=== PATIENT | female | born 1940 | race Caucasian/White ===

== ENCOUNTER 2016-11-11 06:01 | Day surgery (SDC) | payer MEDICARE, MEDICAID ==
--- NOTE | 2016-11-10 11:59 | PCM.ANEPRE ---
Anesthesia Pre-Op Review Reason for Review: COPD Anesthesia Recommendations: Proceed with Procedure Additional Comments Proceed with planned procedure pending DOS eval. Bharathi Perez DO November 10, 2016 11:59
[~2016-11-11] VITALS: Ht 144.8 cm; Wt 60.8 kg
[2016-11-11] VITALS (12 sets, daily range): BP systolic 94–136; BP diastolic 61–86; PULSE 64–69; RESP 15–18; O2SAT 88–97
[2016-11-11] MEDS: Lactated Ringer's 1,000 ML IV SCH ×5 (05:00→20:58)
[~2016-11-11 06:01] MED LIST: ALEN70TA51 PO; CHOL200047 PO; CITA20TA PO; CeFAZolin Inj 2 GM in IV Premix 1 EACH IV ONE; FLUT15.88 NS; LEVO-86 PO; LORA10CA PO; PRE625 VAGINAL; TIOT18CA3 IH
[2016-11-11] MEDS ORDERED: Propofol 10,000 mCg/mL 20 mL Inj ONE (06:02)
[2016-11-11] MEDS ORDERED: Phenylephrine 10,000 mCg/mL Inj ONE (06:02)
[2016-11-11] MEDS ORDERED: EPHEDrine/NS 5 mg/mL 5 mL Syringe ONE (06:02)
[2016-11-11] MEDS ORDERED: Ondansetron 2 mg/mL 2 mL Inj ONE (06:02)
[2016-11-11] MEDS ORDERED: Succinylcholine Chloride 20 mg/mL 5 mL Inj ONE (06:02)
[2016-11-11] MEDS ORDERED: fentaNYL-PF 50 mCg/mL 2 mL Inj ONE (06:02)
[2016-11-11] MEDS ORDERED: Morphine PF 1 mg/mL 10 mL Inj ONE (06:02)
[2016-11-11] MEDS ORDERED: Furosemide 10 mg/mL 4 mL Inj ONE (06:02)
[2016-11-11] MEDS ORDERED: Dexamethasone 4 mg/mL Inj ONE (06:02)
[2016-11-11] MEDS ORDERED: Phenazopyridine 97.5 mg Tablet ONE (06:20)
[2016-11-11] MEDS ORDERED: TIOT18CA3 IH (06:37)
--- NOTE | 2016-11-11 07:19 | PCM.HPANE ---
Patient Data Date of Service: November 11, 2016 Surgeon Admitting Provider: Attending Provider:Roderick Bustillo MD Primary Care Physician:Gabby Landrum MD Other Provider:Guevara De Los Santos Anesthesia Reason for Visit Incomplete Uterovaginal Prolapse, Retocele Ht/WT & BMI Height (Feet): 4 Height (Inches): 9.00 Weight (Kilograms): 60.800 Body Mass Index 28.00 Allergies Coded Allergies: codeine (Verified Allergy, Intermediate, TWITCH, 03/27/12) trazodone (Verified Allergy, Unknown, 11/10/16) albuterol (Verified Adverse Reaction, Unknown, 11/10/16) Causes shakiness/uneasiness Past Anesthesia History Anesthesia History: Denies:: Anesthesia Reactions, Fam Anesthesia Reaction, Fam Malignant Hypertherm, Malignant Hyperthermia Diabetes History Hx Diabetes?: No MRSA MRSA: No Medications Hypertension Medication: No Home Meds Incl Beta Lizzie: Yes Reported Medications Tiotropium Picacho (Spiriva)18 Mcg Cap.w.dev18 Mcg IH BID #1 PKG Ref 0 11/11/16 Tiotropium Picacho (Spiriva)18 Mcg Cap.w.dev18 Mcg IH DAILY PRN For Shortness of Breath #1 PKG Ref 0 11/10/16 Levothyroxine Sodium (Levo-T)50 Mcg Hyaucn96 Mcg PO DAILY 11/10/16 Alendronate (Binosto)70 Mg Tablet.eff70 Mg PO WEEKLY 11/10/16 Cholecalciferol (Vitamin D3) (Vitamin D3)2,000 Unit Capsule2,000 Unit PO DAILY 11/10/16 Estrogens Conjugated (Premarin)0.625 Mg Tablet0.625 Mg VAGINAL Twice weekly 30 Days Ref 0 11/10/16 Citalopram Hydrobromide (Celexa)20 Mg Rfekhe56 Mg PO DAILY Ref 0 11/10/16 Discontinued Reported Medications Loratadine (Claritin)10 Mg Ektjmjm71 Mg PO DAILY Ref 0 11/10/16 Fluticasone Propionate 50 Mcg/Actuation [place].susp1 [place] NS DAILY PRN For Congestion 11/10/16 History History of ENT Problems?: Yes HEENT History: Positive for:: Hearing Problem ([place]) Sinus Problem (Hx of sinus infections) Denture Type: Full- Upper Teeth Condition: Within Normal Limits (lower teeth present) Hx of Heart Problems?: No Cardiovascular History: Denies:: Atrial Fibrillation Chest Pain Congestive Heart Failure Heart Murmur Hx of Respiratory Problem?: Yes Respiratory History: Positive for:: COPD (mild, no recent exacerbations) Use of Inhalers / NEBS (As needed) Hx Neurologic Problems?: No Hx of GI Problems?: Yes Gastrointestinal History: Positive for:: Hiatal Hernia (small, no regular GISELLA) Other GI Pertinent History: Rectocele with fecal incontinence-current problem. Hx of Problems?: Yes Genitourinary History: Positive for:: Urinary Tract Infection (Chronic ) Other Pertinent History: Uterovaginal prolapse; did use pessary without reduction of symptoms. Female Hx: Denies:: Currently Problems with Breasts? (Hx of bilateral augmentation) Hx Musculoskeletal Problems?: Yes Hx of Psycho/Social Problems?: Yes Psycho Social History: Positive for:: Anxiety Hx Depression Hx Surgeries?: Yes (Breast augmentation, sling repair, shoulder scope, tubal, appy, tonsil) Hx Any Other Health Problems?: Yes Other History: Positive for:: Hospitalization Thyroid Disease (Hypothyroid.) Denies:: Cancer Endocrine Disease History Blood Transfusions: Positive for:: Accept Blood Products? Hx Diabetes: No Hx Alcohol Use: NoHx Substance Use: NoHave You Smoked inLast 12 mo: Yes (Pt uses E-cigarette daily) Stop/Bang S-Snoring: Do You Snore Loudly: Yes T-Tired: feel tired, fatigued: No O-Obsered: Observed not breath: No P-Blood Pressure: treated: No B- Body Mass Index > 35 kg/m2: No A- Age over 50: Yes N- Neck Large Circumference: No G- Gender Male: No MIGUEL Total Score: 2 MIGUEL Risk Assessment: Low Risk, <3 Yes Risk Assessment Category Category 1A: Patient has history of documented sleep apnea, and HAS NOT received any narcotic, sedative or anesthesia administration during this stay. Category 1B: Patient has history of documented sleep apnea, and HAS received any narcotic , sedative or anesthesia administration during this stay Category 2: Patient has SUSPECTED Obstructive Sleep Apnea, and HAS received any narcotic , sedative or anesthesia administration during this stay. Category 3: Patient has SUSPECTED Obstructive Sleep Apnea and HAS NOT received narcotic, sedative or anesthesia administration during this stay. Category 4: Outpatient in Procedural Areas with known sleep apnea or who screen positive for High Risk via the STOP/BANG questionnaire. Exam Exam Vital Signs Vital Signs Date Time Temp Pulse Resp B/P Pulse Ox O2 Delivery O2 Flow Rate FiO2 11/11/16 06:23 36.5 64 15 136/86 93 Room Air General Appearance: Alert, Oriented X3, Cooperative, No Acute Distress HEENT/AIRWAY: MP 2, Neck Movement (from), Mouth Opening (3 fb), Other (tmb 3 fb ) Lungs: Clear to Auscultation, Normal Air Movement Heart: Exam Unremarkable, Regular Rate/Rhythm, No Murmurs/Rubs/Gallops Meds/Labs/Diagnostics Admission Meds Current Medications Lactated Ringer's (Lr) 1,000 ml @ 120 mls/hr Q8H20M IV Last administered on 06:51; Start 11/11/16 at 05:00; Stop 11/11/16 at 13:19 Gabapentin (Neurontin) 600 mg PREOP ONCE PO Last administered on 11/11/16 06: 29; Start 11/11/16 at 06:00; Stop 11/11/16 at 06:01; Status DC Acetaminophen (Tylenol) 975 mg PREOP ONCE PO Last administered on 11/11/16 06: 28; Start 11/11/16 at 06:00; Stop 11/11/16 at 06:01; Status DC Labs Plt 284 Test 11/11/16 06:35 Plan Impression Patient chart reviewed, patient interviewed and anesthestic plan with risks, benefits, and alternatives discussed, and informed consent obtained. NPO per Anesth. Guidelines: Yes ASA Physical Status: ASA2 Mod Systemic Disease Anesthetic Plan: GA, Other (intrathecal morphine for postoperative analgesia) Bene/Risks/Altern/Consents: Yes HP Complete Prior to Induction: Yes Pablito Tatum MD November 11, 2016 07:19
[2016-11-11 07:20] LABS: Mean Corpuscular Hemoglobin 27.4 pg (27.0-35.0); Mean Corpuscular Volume 84.9 fL (81-100)
[2016-11-11] MEDS ORDERED: Labetalol 5 mg/mL 4 mL Inj IV PRN (08:20)
[2016-11-11] MEDS ORDERED: Lactated Ringer's 500 ML IV PRN (08:20)
[2016-11-11] MEDS ORDERED: EPHEDrine Sulfate 50 mg/mL Inj IVPUSH PRN (08:20)
[2016-11-11] MEDS ORDERED: EPHEDrine Sulfate 50 mg/mL Inj IM PRN (08:20)
[2016-11-11] MEDS ORDERED: Phenylephrine 10,000 mCg/mL Inj IVPUSH PRN (08:20)
[2016-11-11] MEDS ORDERED: Ondansetron 2 mg/mL 2 mL Inj IVPUSH PRN ×2 (08:20→11:50)
[2016-11-11] MEDS ORDERED: Lactated Ringer's 1,000 ML IV SCH (08:20)
[2016-11-11] MEDS ORDERED: hydrALAZINE 20 mg/mL Inj IVPUSH PRN (08:20)
[2016-11-11] MEDS ORDERED: HYDROmorphone 1 mg/mL Inj IVPUSH PRN (08:20)
[2016-11-11] MEDS ORDERED: fentaNYL-PF 50 mCg/mL 2 mL Inj IVPUSH PRN (08:20)
[2016-11-11] MEDS ORDERED: Atropine 0.4 mg/mL Inj IVPUSH PRN (08:20)
[2016-11-11] MEDS ORDERED: Gentamicin 40 mg/mL 2 mL Inj IRRIGATION ONE ×2 (08:45→09:01)
[2016-11-11 10:15] LABS: APPEARANCE,URINE CLEAR (CLEAR,HAZY); COLOR,URINE DARK YELLOW (YELLOW); OCCULT BLOOD,URINE NEGATIVE (NEGATIVE); PH,URINE 8.5 (5.0-8.0); UROBILINOGEN,URINE NORMAL (NORMAL)
[2016-11-11] MEDS ORDERED: Estrogens Conjugated 30 Gm Vaginal Cream VAGINAL ONE (10:38)
[2016-11-11] MEDS ORDERED: Lactated Ringer's 1,000 ML IV ONE (11:27)
[2016-11-11] MEDS ORDERED: MetoCLOpramide 5 mg/mL 2 mL Inj IVPUSH PRN (11:50)
[2016-11-11] MEDS ORDERED: Alum-Mag Hydrox-Simeth 30 mL Suspension PO PRN (11:50)
[2016-11-11] MEDS ORDERED: Acetaminophen IV 1,000 MG in IV Premix 1 EACH IV ONE (11:50)
--- NOTE | 2016-11-11 12:30 | NUR ---
received to room 1017 from PACU alert, oriented, 76 year old female, fairly comfortable, on 5L Oxygen per Oxymask, does not appear to be in any distress. Has vag packing in.
--- NOTE | 2016-11-11 13:03 | PCM.ANEP1 ---
Post Anesthesia Phase 1 PACU Phase 1 Assessment Date of Service: November 11, 2016 Vital Signs Vital Signs Date Time Temp Pulse Resp B/P Pulse Ox O2 Delivery O2 Flow Rate FiO2 11/11/16 12:30 17 109/76 94 OxyMask 5 11/11/16 12:15 65 16 104/68 95 Simple Mask 10 11/11/16 12:00 66 16 118/73 95 Simple Mask 10 11/11/16 11:50 67 15 118/67 94 Simple Mask 10 11/11/16 11:47 17 97 11/11/16 11:45 65 15 115/70 94 Simple Mask 10 11/11/16 11:40 64 17 121/69 94 Simple Mask 10 11/11/16 11:35 36.9 68 16 122/79 95 Simple Mask 10 11/11/16 06:23 36.5 64 15 136/86 93 Room Air Anesthetic Administered: GA, Regional Block Level of Alertness: Sleepy, easy to arouse HORTON's with Equal Strength: Yes Pain: No Nausea or Vomiting: No Cardiovascular Function and Hy: Yes Oxygen Delivery: Simple Mask Lungs: Clear to Auscultation, Normal Air Movement Dermatome Level: Full Sensation Summary Pt comfortable. Complications: No Follow up Care: No Patient Instructions Provided: Yes Pablito Tatum MD November 11, 2016 13:03
[2016-11-11] MEDS: oxyCODONE-Acetamin 5-325 mg Tablet PO PRN ×2 (14:27→21:06)
[2016-11-11] MEDS: Ketorolac 15 mg/mL Inj IVPUSH PRN ×2 (14:28→21:06)
[2016-11-11] MEDS ORDERED: BACITRACIN RIGHT_EYE SCH (14:32)
[2016-11-11] MEDS ORDERED: POLYMYXIN B RIGHT_EYE SCH (14:32)
[2016-11-11] MEDS: BACITRACIN RIGHT_EYE SCH ×2 (14:55→21:02)
[2016-11-11] MEDS: NEOMYCIN RIGHT_EYE SCH ×2 (14:55→21:02)
[2016-11-11] MEDS: POLYMYXIN B RIGHT_EYE SCH ×2 (14:55→21:02)
[2016-11-11] MEDS: Tiotropium 18mcg/Cap 5 Capsule Inhaler Kit INHALATION SCH (16:58)
[2016-11-11] MEDS ORDERED: Tiotropium 18mcg/Cap 5 Capsule Inhaler Kit INHALATION SCH (20:30)
--- NOTE | 2016-11-11 22:06 | PCM.SURGOP ---
Surgical Operative Report Date of Service: November 11, 2016 Pre Operative Diagnosis 1. urodynamic stress incontinence (recurrent) 2. Rectocele 3. Uterine prolapse Post Operative Diagnosis 1. urodynamic stress incontinence (recurrent) 2. POPQ Stage 2 Rectocele 3. POPQ Stage 2 Uterine prolapse and Enterocele Procedure: 1. vaginal hysterectomy with bilateral salpingoophorectomy 2. posterior repair 3. high uterosacral ligament vaginal vault suspension, cystoscopy, and enterocele repair 4. Macroplastique urethral injection. 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 urodynamic stress incontinence 2. Rectocele and Uterine prolapse She had been using a #7 ring pessary with support and knob. However, she decided to pursue surgical treatment. She had a sling inserted in [place] by an ObGyn in the . Due to vaginal erosion, the sling was removed in Mar 2015 at [facility] in [place]. The patient is a candidate for surgical prolapse management in the form of:. vaginal hysterectomy. with possible BSO, posterior repair with possible biologic graft augmentation, [high uterosacral ligament vaginal vault suspension, enterocele repair. and Macroplastique urethral injection. She has obtained medical/cardiac clearance prior to surgery. The patient signed the consent form. She agreed with the risks, benefits, and alternatives to surgery. The risks included but not limited to recurrence or persistence of prolapse, recurrence of persistence of incontinence, development of voiding dysfunction, development of urinary urgency, urgency incontinence, frequency, and need for intermittent self-catheterization or prolonged indwelling catheterization, injury to other organs including bladder, bowel, nerves or blood vessels. Need for blood transfusion, need for temporary colostomy or urinary stenting. Development of vaginal scarring, dyspareunia, defecatory dysfunction, recurring pain, hematoma formation, urinary tract infection, cellulitis, necrotizing fascitis, and medical risks including myocardial infarction, stroke or VTE. She also understood the FDA warnings associated with the use of vaginal mesh (dysparunia, vaginal erosion, erosion into bowel/bladder/urethra, requiring further surgery to correct these complications). The patient understood the risks and benefits and consented to surgery. Findings: see dictation Procedure Details SURGICAL TECHNIQUE: The patient was brought to the operating room and was placed under general anesthesia. Prior to this a spinal with Duramorph was administered. She was prepped and draped in the normal fashion for vaginal surgery with the legs in Yellofin stirrups. She was given a dose of IV ancef intraoperatively. She received 200 mg of oral pyridium 30 min prior to surgery. 1. Vaginal Hysterectomy and Bilateral Salpingoophorectomy: Lidocaine 0.5% with 1:200,000 of epinephrine was infiltrated pericervically. A pericervical incision was made with a scalpel. Anteriorly, the bladder was sharply dissected off the cervix. Posteriorly, the cul de sac was entered with sharp dissection. The bowels were packed with a mini-laparotomy sponge. The uterosacral ligaments were bilaterally clamped, divided and then tied in a transfixion fashion with 0- vicryl suture. Anteriorly, the Uterovesical peritoneum was entered with sharp dissection and the bladder was retracted upward with a right-angle retractor. The uterine vessels were then coagulated, and ligated using the Ligasure Impact System. The uterine body was delivered posteriorly. The utero-ovarian ligaments were clamped bilaterally, coagulated, ligated and then tied using 0-Vicryl suture. The ovaries and tubes appeared normal. Next we proceeded with Bilateral Salpingoophorectomy. The left ovary and tube were grasped with [place] clamp. A hysterectomy clamp was placed along the vascular base. This was coagulated, then ligated with Ligasure Impact. The pedicle was then tied using 0-vicryl suture. The same procedure was performed on the right adnexa. It was noted that the pedicles were hemostatic. 2-0 Vicryl suture was used to achieve hemostasis along the lateral cuff. 2. High uterosacral ligament vaginal vault suspension, cystoscopy and enterocele repair: Mini laparotomy sponges were packed to retract the bowel upwards. A pair of Allis clamps were placed along the intraperitoneal portions of the vagina at the 5 and 7 o'clock positions. Tension along these Allis clamps allowed for identification of the uterosacral ligaments bilaterally. Also the ureters were palpated bilaterally in order to avoid them. A pair of 0 Vicryl sutures were passed around the uterosacral ligaments at the level of the ischial spine bilaterally, totalling four. Cystoscopy was performed. As the pyridium was not concentrating, 200 ml of D50 was instilled into the bladder. While tension was applied to the vault sutures, spillage of urine was noted at both ureteric orifices. Next, two 3-0 Prolene sutures were placed transversely through the cul-de-sac peritoneum. This was performed while using a gloved finger in the rectum as to avoid penetrating the underlying rectal mucosa. Tying these sutures obliterated the enterocele. 3. Posterior colporrhaphy: Lidocaine 0.5% with 1:200,000 of epinephrine was infiltrated along the perineum and posterior vaginal wall mucosa. A midline vertical incision was made through the perineum and a midline vertical incision was made along the posterior vagina with a scalpel. A small wedge of perineum was not necessary to be excised. The vaginal mucosa was dissected off the underlying rectovaginal tissues. It was noted the fascial tissues were not thin nor deficient. The rectocele was plicated in one layer using 2-0 Vicryl suture in an interrupted fashion. No excess posterior vaginal mucosa was required to be excised. Examination of the anterior segment revealed no significant anterior wall descent. A pair of Alices were placed along the anterior apex and pushing it towards the level of the planned vault suspension allowed for complete reduction of the anterior segment. Therefore, we felt an anterior repair was not necessary. The vault suspension sutures were then passed through the planned apex of the vagina. Two were placed through the anterior apex and the other two, through the posterior apex. The vagina was then reapproximated using 3-0 Vicryl suture in a running-locked fashion. The perineum was reapproximated using 2-0 Vicryl suture in an interrupted fashion. The skin was reapproximated using 3-0 Vicryl suture in a subcuticular fashion. The high uterosacral ligament vaginal vault suspension sutures were tied and this elevated the apex of the vagina high up into the hollow of the sacrum. As noted before, the anterior segment was completely reduced and therefore an anterior repair was not necessary. 4. Macroplastique Urethral Injection and cystoscopy. A 30-degree cystoscope was inserted into the bladder. The bladder was filled to approximately 50% capacity with sterile water. The scope was retracted to visualize the bladder neck and location of the mid urethral position. The needle was then advanced through the working channel of the scope to visualize the needle tip. The needle was inserted into urethral wall, taking care to ensure that the needle bevel was facing the center of the urethral lumen. We used the tissue tunneling technique by orienting the needle with the bevel towards the urethral lumen at a 30- to 45-degree angle. The needle was advanced into the tissue to the first robert, which was 0.5 cm deep. The scope was reduced to 0 degrees. The needle was then advanced to a second robert, which was 1 cm deep. Then, 2.5 mL of the Macroplastique were then injected at the 6 o'clock position. Thirty seconds of waiting time elapsed before withdrawing the needle from the tissue to limit product extravasation. The same procedure was performed at the 2 and 10 o'clock positions. The volumes at the 2 and 10 o'clock positions were 1.25 mL of Macroplastique implant. An additional 1.25 ml of the implant was injected at the 4 oclock and 8 ooclock positions. The end result of the procedure revealed coaptation of the urethral mucosa at the level of the bladder neck. A 12 F marrero catheter was inserted to straight drainage. The vagina was packed with Premarin-lubricated packing. An indwelling 12F marrero catheter was connected to straight drainage. The patient's hips were periodically deflexed during the case. There were no complications. Due to frequent passage of stool per anus, she also received a dose of 80 mg IV gentamicin. Copious irrigation was used. The EBL was 150 ml. All sponges and instruments were accounted for. She was taken to the recovery room in stable condition. Complications There were no periprocedural complications identified. Surgical Specimen Removed: Yes Specimen sent to Pathology: Yes Surgical Specimen description: uterus/cervix and bilateral tubes/ovaries Anesthetic Plan: GA, Other (intrathecal morphine for postoperative analgesia) Grafts, Implants: Implants-See Implant Record Output, Estimated Blood Loss: 150 (ml EBL) Blood Administration during shen: No Drains: None Catheters: Urethral 2 Way Marrero Post Operative Plan overnight stay in bed as outpatient copies to: Edwige Hernández MD; Sharla Ventura MD; Roderick Bustillo MD, William Andre Z MD November 11, 2016 22:06
[2016-11-12 00:20] VITALS: BP 106/69; PULSE 72; RESP 18; O2SAT 95
[2016-11-12] MEDS: oxyCODONE-Acetamin 5-325 mg Tablet PO PRN ×4 (01:52→13:53)
[2016-11-12] MEDS: Lactated Ringer's 1,000 ML IV SCH ×2 (04:55→11:49)
[2016-11-12 05:18] VITALS: BP 102/62; PULSE 82; RESP 18; O2SAT 95
[2016-11-12 05:21] LABS: BASOPHILS % (AUTO) 0.1 % (0-3); EOSINOPHILS % (AUTO) 0.2 % (0-5); MONOCYTES % (AUTO) 12.7 % (4-12); Mean Corpuscular Hemoglobin 27.4 pg (27.0-35.0); Mean Corpuscular Volume 87.6 fL (81-100); NEUTROPHILS % (AUTO) 72.8 % (40-74); Platelet Count 225 bil/L (150-400)
--- NOTE | 2016-11-12 05:35 | NUR ---
Pain Moderate pelvic pain well controlled with prn Percocet. Vag packing in place, pt able to ambulate well, marrero draining freely. Hourly rounding ongoing.
[2016-11-12 08:16] VITALS: BP 90/62; PULSE 84; RESP 20; O2SAT 92
[2016-11-12] MEDS: BACITRACIN RIGHT_EYE SCH (08:18)
[2016-11-12] MEDS: NEOMYCIN RIGHT_EYE SCH (08:18)
[2016-11-12] MEDS: POLYMYXIN B RIGHT_EYE SCH (08:18)
[2016-11-12] MEDS: Tiotropium 18mcg/Cap 5 Capsule Inhaler Kit INHALATION SCH (08:22)
[2016-11-12] MEDS ORDERED: Senna-Docusate 8.6-50 mg Tablet PO SCH (08:30)
[2016-11-12] MEDS ORDERED: Heparin 5,000 Unit/mL Inj SUBQ SCH (08:30)
--- NOTE | 2016-11-12 11:00 | NUR ---
VOIDING TRIAL/MD NOTIFICATION Voiding trial initiated as ordered. Patient was able to void X 3 in half an hour period with a total of 200 ml. PVR-[address] Bustillo made aware. Per MD have patient void again and do another bladder scan and notify MD. Addendum: 11/12/16 at 1617 by JACQUELYN TATUM RN MD NOTIFICATION AT 1230 Patient was able to void 100 ml of UO. PVR-200+. Dr. Bustillo made aware. Per d/c patient with an IFC.
--- NOTE | 2016-11-12 11:57 | PCM.DIGYN ---
Surgical Discharge Instruction Dates of Hospitalization Date of Hospital Admission 11/11/16 outpatient in bed for overnight observation Providers Admitting Physician: Primary Care Physician: Gabby Landrum MD Attending Physician: Roderick Bustillo MD Diagnosis at Time of Discharge Diagnosis at time of discharge 1. urodynamic stress incontinence (recurrent) 2. POPQ Stage 2 Rectocele 3. POPQ Stage 2 Uterine prolapse and Enterocele Post-operative diagnosis 1. urodynamic stress incontinence (recurrent) 2. POPQ Stage 2 Rectocele 3. POPQ Stage 2 Uterine prolapse and Enterocele Problems: Diet Discharge Diet: No restrictions Activity Discharge Activity-General: Restrict lifting to no greater than (10 lbs for 6 wk) Dressing and Incisional Care Hygiene: May shower Follow Up Plan Follow-up appointment: Weeks (2; also f/u in [address] Bustillo's MA if home with marrero; bring the 12 F marrero to the 1wk visit if needed) Call your provider for: Fever, Chills, Shortness of breath, Vomitting, Heavy vaginal bleeding, Increasing pain Roderick Busitllo MD November 12, 2016 11:57
--- NOTE | 2016-11-12 12:00 | PCM.PNSURG ---
Subjective Date of Service: November 12, 2016 Date of Service: November 12, 2016 Visit Information: Reason for Visit Incomplete Uterovaginal Prolapse, Retocele Surgery/Surgery Date TOTAL VAGINAL HYSTERECTOMY 11/11/16 Post-Op Day # 1 Subjective: AVSS OR explained tolerating diet anagesia good ambulating hct stable Postop General: No Complaints Gastrointestinal: Good Appetite Pain Management: PO Postop Activity: Ambulating Independently Objective Vital Sign- Last 8 Hours Date Time Temp Pulse Resp B/P Pulse Ox O2 Delivery O2 Flow Rate FiO2 11/12/16 08:16 36.8 84 20 90/62 92 Room Air 11/12/16 05:18 36.9 82 18 102/62 95 Nasal Cannula 2.00 Intake and Output- Last 8 Hour 11/12/16 Cumulative From/Thru 07:00 11/10/16 10:02 - 11/12/16 06:24 Intake Total 2388 ml 3788 ml Output Total 650 ml 1850 ml Balance 1738 ml 1938 ml Intake Oral 400 ml 400 ml IV Total 1988 ml 3388 ml Output Urine Total 650 ml 1550 ml Estimated Blood Loss 300 ml # Bowel Movements 0 0 General: Alert, Oriented X3, Cooperative Lungs: Clear to Auscultation Abdomen: Benign Catheters: Urethral 2 Way Natarajan Result Diagram: 11/12/16 0455 11/11/16 0635 Assessment & Plan Impression stable POD#1 Problems: VTE Prophylaxis: Sub-Q Heparin (Unfractionated) Resuscitation Status: CPR: Attempt Resuscitation copies to: Gabby Landrum MD; Roderick Bustillo MD, William Andre Z MD November 12, 2016 12:00
--- NOTE | 2016-11-12 14:00 | NUR ---
DISCHARGE Percocet 1-2 tabs PO has been effective for pain control. Patient has been tolerating liquids PO and his diet well. Denies nausea. No emesis noted. Denies SOB. Patient has been able to ambulate in the room with SBA. Tolerated activity well. IFC replaced per orders. IFC instructions was given to the patient and she verbalized understanding. Vaginal packing was d/cd prior to voiding trial this morning. No other dressing noted. IV saline lock d/cd. Discharge instructions, care notes and prescription was given to the patient and she verbalized understanding. Discharged to home with her daughter and all her persona belongings. (Copy of D/C is in the chart).
--- NOTE | 2016-11-16 14:28 | PATH ---
SURGICAL PATHOLOGY Attending Physician:Roderick Bustillo, CASE STATUS: Signed Out PATIENT NAME: TYLOR HENDRICKS PID: [id number] : 1940 DATE COLLECTED:11/11/2016 21:59 SPECIMEN: 1: Uterus +/- tubes/ovaries, except neoplastic, prolapse 2: Ovary +/- tube, non-tumor CLINICAL HISTORY: INCOMPLETE UTERVAGINAL PROLAPSE RECTOCELE 1). UTERUS, LEFT OVARY AND TUBE 2). RIGHT OVARY AND TUBE FINAL DIAGNOSIS: 1.UTERUS, WITH LEFT OVARY AND FALLOPIAN TUBE: LEIOMYOMAS, MYOMETRIUM. BENIGN ENDOMETRIAL POLYP. DISORDERED PROLIFERATIVE ENDOMETRIUM, NEGATIVE FOR ATYPIA. OVARY AND FALLOPIAN TUBE UNREMARKABLE. 2.RIGHT OVARY (NO FALLOPIAN TUBE IDENTIFIED): MULTIFOCAL ENDOMETRIOSIS. ICD10 CODE D25.9 GROSS DESCRIPTION: 1. Received in formalin, labeled "uterus, left ovary and tube", specimen consists of a 35 gram hysterectomy specimen measuring 6.5 cm superior to inferior, 3.5 cm lateral to lateral, and 3.0 cm anterior to posterior. Exocervix measures 3.0 x 3.0 cm and it has a slit-like os measuring 1.5 cm. The cervix is covered by a light damico, smooth, glistening mucosa. Endocervical canal measures 2.0 cm in length and it has a herringbone mucosal surface. Endometrial cavity measures 2.0 cm cornu to cornu and 3.2 cm in length. The posterior endometrium has a red-damico, hyperemic polypoidal structure measuring 1.1 x 0.5 x 0.5 cm. The remainder of the endometrial lining is damico and it measure 0.1 to 0.2 cm in maximum thickness. The myometrium measures 1.2 cm in maximum thickness. At the fundus of the posterior aspect there is a leiomyoma that measures 1.1 cm in diameter extending from the submucosa to subserosa. There is also an anterior uterine wall intramural fibroid-like structure measuring 0.5 cm in maximum diameter. Received also in the same container is a 0.3 cm gram ovarian structure with attached fallopian tube. The ovary measures 2.5 x 1.2 x 1.0 cm, and the fallopian tube measures 3.0 cm in length by 0.5 cm in diameter. The outer surface of the ovary is laguna-white, smooth, and glistening. The cut surface of the ovary is white to damico, solid and homogeneous. [employer] sections submitted as follows: A. Ant. Cervix B. Ant. lower uterine segment C. Ant. uterine wall full thickness D. Ant. uterine wall full thickness E. Post. Cervix F. Post. lower uterine segment G. Post. uterine wall with polypoidal structure full thickness H. Post. uterine wall full thickness I. Post. wall with leiomyomata-like structure J. Entire ovarian structure K. Fimbriated end of the F. Tube L. The remainder of the F. Tube 2. Specimen received in formalin, labeled "right tube and ovary" designated "#2", specimen consists of a 2.2 cm ovarian structure measuring 1.8 x 2.0 x 1.2 cm. No fallopian tube-like structure is grossly identified. Cut surface is pale damico to white, solid and homogeneous. No masses or lesions are grossly identified. Specimen is submitted entirely in three cassettes. ([id number]) MICRO DESCRIPTION: See diagnosis. ICD-9 CODES: CPT CODES: 1: 24176 2: 13976 Electronically Signed Out Bobby Narvaez MD [facility] Pathology [facility] [address], [place] [address] Technical component performed at [facility], [address] [place] [address] Ave, [address], [place], [address]
== END 2016-11-12 14:12 | disposition home or self-care (01) ==
LOC: SAS 06:01 → OSC 12:52 → SAS 11-12 14:12
PROVIDERS: ATTEND Obstetrics & Gynecology
DX: N81.2 Incomplete uterovaginal prolapse (principal); N81.6 Rectocele; N39.46 Mixed incontinence; G89.18 Other acute postprocedural pain; D25.9 Leiomyoma of uterus, unspecified; N95.2 Postmenopausal atrophic vaginitis; R15.9 Full incontinence of feces; N81.84 Pelvic muscle wasting; M81.0 Age-related osteoporosis without current pathological fracture; F32.9 Major depressive disorder, single episode, unspecified; E03.9 Hypothyroidism, unspecified; F41.9 Anxiety disorder, unspecified; M19.90 Unspecified osteoarthritis, unspecified site; K44.9 Diaphragmatic hernia without obstruction or gangrene; J44.9 Chronic obstructive pulmonary disease, unspecified; K58.9 Irritable bowel syndrome, unspecified; F17.290 Nicotine dependence, other tobacco product, uncomplicated; Z86.010 Personal history of colon polyps; Z79.890 Hormone replacement therapy; Z87.440 Personal history of urinary (tract) infections
CPT/HCPCS: 36415; 51715; 57250; 57283; 58262; 80048; 81000; 85025; 85027; 86850; 94640; 96374; J0330; J0690; J1100; J1580; J1644; J1885; J1940; J2250; J2274; J2370; J2405; J3010; J7120; L8606